=== PATIENT | female | born 1945 | race Caucasian/White ===

== ENCOUNTER 2018-04-15 04:04 | Emergency (ER) | payer MEDICARE, OTHER ==
[2018-04-15 04:15] VITALS: TEMP 99.4
--- NOTE | 2018-04-15 04:32 | ED ---
Female Urogenital HPI - General Chief complaint: Urogenital Stated complaint: Female Source: patient, EMS Mode of arrival: EMS Limitations: no limitations - History of Present Illness Initial comments: Ora is a 73-year-old female who resides at [facility]. She is currently on hospice for end-stage heart failure. Caregivers and the nausea was there is no output from her Romero catheter they were unable to replace it data bladder scan was greater than 1 L of urine and they sent her here for catheter replacement. - Related Data Allergies Allergy/AdvReac Type Severity Reaction Status Date / Time phenobarbital Allergy Rash/Hives Verified 04/15/18 04:17 Review of Systems ROS Statement: Those systems with pertinent positive or pertinent negative responses have been documented in the HPI. ROS Other: All systems not noted in ROS Statement are negative. Limitations: ROS unobtainable due to patients medical condition Past Medical History Past Medical History: Atrial Fibrillation, COPD, Dementia, Diabetes Mellitus, Hyperlipidemia, Hypertension, Renal Disease, Seizure Disorder Additional Past Medical History / Comment(s): CHF, CKD, UTI with spesis, hospice History of Any Multi-Drug Resistant Organisms: None Reported Past Surgical History: Pacemaker Past Psychological History: Bipolar, Depression Smoking Status: Never smoker Past Alcohol Use History: None Reported Past Drug Use History: None Reported General Exam - General Exam Comments Initial Comments: Physical Exam GENERAL: Elderly female laying in bed moaning nonverbal HENT: Normocephalic, Atraumatic. EYES: PERRL, EOMI PULMONARY: Tachypnea CARDIOVASCULAR: Regular rate ABDOMEN: Palpable bladder SKIN: Pale : Normal external genitalia NEUROLOGIC: Nonverbal MUSCULOSKELETAL: Generalized atrophy Lower extremity pitting edema PSYCHIATRIC: Nonverbal Limitations: no limitations Limitations: no limitations Course Vital Signs 04/15/18 04/15/18 04/15/18 04:06 04:50 05:00 Temperature 99.4 F Pulse Rate 63 85 16 L Respiratory 20 20 Rate Blood Pressure 95/53 91/63 93/46 O2 Sat by Pulse 97 95 99 Oximetry 04/15/18 06:37 Temperature Pulse Rate 108 H Respiratory 16 Rate Blood Pressure 82/54 O2 Sat by Pulse 99 Oximetry Medical Decision Making - Medical Decision Making She was seen and evaluated history was obtained from EMS and caregivers at [facility] minimally responsive 73-year-old female with end-stage CHF currently on hospice who presents for evaluation of decreased flow from her urinary catheter That are was exchanged for another 16-English catheter patient had low urine output she did have some sediment in the urine Water scan reveals greater than 1 L in the bladder, Bedside ultrasound does reveal a very distended bladder there is concern for obstruction even of the new catheter we will consider placing a larger catheter at this time 18-English catheter was placed urine is draining, urine drains better and patient is rolled to her side the catheter does appear to be positional but it is draining at this time the patient stable for discharge back to [facility] under the care of [facility] Disposition Clinical Impression: Obstructed Romero catheter Disposition: HOME SELF-CARE Condition: Poor Instructions (If sedation given, give patient instructions): Urinary Tract Infection in Women (ED) Is patient prescribed a controlled substance at d/c from ED?: No Referrals: Jeffry Alcala DO [Primary Care Provider] - 1-2 days
[2018-04-15 09:21] VITALS: PULSE 102
[2018-04-15 09:23] VITALS: RESP 20
[2018-04-15 09:25] VITALS: BP 92/47
== END 2018-04-15 09:23 | disposition home or self-care (01) ==
LOC: EC 04:04
DX: T83.091A Other mechanical complication of indwelling urethral catheter, initial encounter (principal); I48.91 Unspecified atrial fibrillation; I13.0 Hypertensive heart and chronic kidney disease with heart failure and stage 1 through stage 4 chronic kidney disease, or unspecified chronic kidney disease; I50.84 End stage heart failure; N18.9 Chronic kidney disease, unspecified; Z88.8 Allergy status to other drugs, medicaments and biological substances; Z95.0 Presence of cardiac pacemaker
CPT/HCPCS: 51702; 99283